=== PATIENT | male | born 1960 | race Caucasian/White ===

== ENCOUNTER 2024-12-25 12:06 | Emergency (ER) | payer MEDICARE, SELFPAY ==
[2024-12-25 12:07] VITALS: BP 164/111; PULSE 71; RESP 18; TEMP 36.8; O2SAT 98
--- NOTE | 2024-12-25 12:30 | EX.ED.DYSGE1 ---
HPI History of Present Illness Chief Complaint: Numb/Ting Informant: patient Onset/Context/Timing Onset: Month(s) Context: Gradual Onset Timing: Continuous Quality: Burning Location: Right hand, left 4th and 5th fingers Worsened by: Nothing Relieved by: Elevation Narrative Narrative: Patient presents with neuropathy pain that has been constant for months. Patient states he is on gabapentin for his neuropathy. Patient states he ran out of this. Patient states he recently moved here from [facility]. Patient states he attempted to contact his primary care physician from [facility] for a refill of his gabapentin. Patient states that his primary care physician was not able to refill it. Patient describes his pain as burning. Patient states it is mainly in his right hand. Patient states it is also in the 4th and 5th fingers of his left hand. Patient denies any fevers or chills. Patient denies any weakness. [facility] Medical History (Updated 12/25/24 @ 12:[address] Saurav Aldana DO) Bone cancer Lung cancer History of liver cancer Home Medications ?Medication ?Instructions ?Recorded ?Last Taken ?Type gabapentin 300 mg capsule 300 mg PO TID #30 caps 12/25/24 Unknown Rx Allergy/AdvReac Type Severity Reaction Status Date / Time No Known Allergies Allergy Verified 12/25/24 12:08 Surgical History (Updated 12/25/24 @ 12:[address] 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 Social History Smoking Status: Current every day smoker tobacco type: cigarettes ROS ROS ED Constitutional Constitutional ED: Denies chills or fever(s) Eyes Eyes: Reports blurry vision and diplopia; Denies change in vision ENT ENT ED: Denies rhinorrhea or sore throat Cardiovascular Cardiovascular: Denies chest pain or palpitations Respiratory/Chest Respiratory/Chest: Reports dyspnea; Denies cough Gastrointestinal Gastrointestinal: Denies nausea or vomiting Genitourinary Genitourinary ED: Denies dysuria or hematuria Musculoskeletal Musculoskeletal: Reports back pain; Denies neck pain Integumentary Denies abscess or rash Neurologic Neurologic: Denies headache(s) or weakness Allergic/Immunologic Allergic/Immunologic ED: Denies mouth swelling or urticaria EXAM Physical Exam Const Vital Signs: 12/25/24 12:07 12/25/24 13:04 Temperature 98.3 F 97.8 F Temperature Source Oral Pulse Rate 71 67 Respiratory Rate 18 16 Blood Pressure 164/111 H 159/74 H Blood Pressure Mean 128 102 Pulse Ox 98 100 Oxygen Delivery Method Room Air Positive well nourished and well developed General Appearance ED: well developed and NAD HEENT Reports moist mucous membranes Eyes EOMs intact bilaterally Neck supple and no JVD Resp normal respiratory effort and clear to auscultation bilaterally Cardio regular rate and regular rhythm GI non-tender and non-distended Palpation: soft Extremity normal to inspection General Extremety ED: Negative for edema General Extremity: Negative for edema Neuro oriented x3, CN's II-XII intact bilaterally and no sensory deficits noted Sensorium / Orientation: alert Motor Exam: strength 5/5 throughout Psych mental status grossly normal MDM MDM MDM Narrative Medical decision making narrative: Patient recently moved here from [facility]. Patient does not have a primary care physician or an oncologist in the area here. Patient was given a referral to a primary care physician and oncologist. Patient was given a refill of his gabapentin. Patient was instructed to follow-up with his primary care physician and oncologist in 5 to 7 days. Patient was instructed to return if worse in any way. Patient understood and was agreeable with the plan. All questions were answered. History & Record Review Additional record(s) reviewed:: No prior records Discharge Plan Triage Chief Complaint: Numb/Ting ED Provider: Saurav Aldana Dx/Rx/DC Orders Clinical Impression: Neuropathy, Cancer of liver, primary, Metastatic cancer to lung, Metastatic cancer to bone Instructions: ED Neuropathy, Peripheral Prescriptions: New gabapentin 300 mg capsule 300 mg PO TID Qty: 30 0RF Primary Care Provider: Care Physician,Daly Primary Referrals: Minna Collins MD [Med Staff - Machine Repair Person] - 3-5 Days Misael Rolle MD [Med Staff - Active Staff] - 5-7 Days Print Language: Welsh Disposition Disposition: Home, Self Care Discharge Date/Time: 12/25/24 13:06
[2024-12-25] MEDS: Gabapentin 300 MG Capsule PO (12:58)
[2024-12-25 13:04] VITALS: BP 159/74; PULSE 67; RESP 16; TEMP 36.6; O2SAT 100
== END 2024-12-25 13:06 | disposition home or self-care (01) ==
PROVIDERS: Emergency Provider Emergency Medicine; Visit Provider Emergency Medicine
DX: G62.9 Polyneuropathy, unspecified (principal); C34.90 Malignant neoplasm of unspecified part of unspecified bronchus or lung; C22.8 Malignant neoplasm of liver, primary, unspecified as to type; C41.9 Malignant neoplasm of bone and articular cartilage, unspecified; Z79.899 Other long term (current) drug therapy; F17.210 Nicotine dependence, cigarettes, uncomplicated
CPT/HCPCS: 99282